=== PATIENT | male | born 1995 | race Caucasian/White ===

== ENCOUNTER 2024-08-22 16:46 | Emergency (ER) | payer OTHER ==
[~2024-08-22] VITALS: Ht 177.8 cm; Wt 84.8 kg
[2024-08-22] MEDS ORDERED: CEPHALEXIN MONOHYDRATE 500 MG CAP PO ONE (18:15)
[2024-08-22] MEDS ORDERED: HYDROCODONE/ACETA 7.5/325 TAB PO ONE (18:15)
[2024-08-22] MEDS ORDERED: CEPHALEXIN500 M1 PO (18:56)
[2024-08-22] MEDS ORDERED: CEPHALEXIN MONOHYDRATE 500 MG HOME.PACK PO ONE (19:00)
[2024-08-22 19:17] VITALS: BP 153/87
== END 2024-08-22 19:17 | disposition home or self-care (01) ==
LOC: ED 16:46
DX: L03.317 Cellulitis of buttock (principal); L05.91 Pilonidal cyst without abscess
CPT/HCPCS: 10080; 99283-25; A9270